=== PATIENT | female | born 1960 | race Caucasian/White ===

== ENCOUNTER 2023-02-15 15:14 | Emergency (ER) | payer BC, OTHER ==
[2023-02-15 15:38] VITALS: BP 147/82; PULSE 68
[2023-02-15] MEDS: Acetaminophen/HYDROcodone 325-5 MG Tab PO ONE (15:41)
[2023-02-15] MEDS: Ketorolac 60 MG/2 ML SDV IM ONE (16:14)
[2023-02-15] MEDS: Acetaminophen/HYDROcodone 325-5 MG Tab ONE (16:14)
== END 2023-02-15 16:35 | disposition home or self-care (01) ==
LOC: LB.ED 15:14
DX: S52.502A Unspecified fracture of the lower end of left radius, initial encounter for closed fracture (principal); Z79.899 Other long term (current) drug therapy; W18.30XA Fall on same level, unspecified, initial encounter
CPT/HCPCS: 73110; 99283; A9270